=== PATIENT | male | born 1955 | race Two or more races ===

== ENCOUNTER 2020-10-01 11:00 | Emergency (ER) | payer OTHER, SELFPAY ==
[2020-10-01 12:12] VITALS: BP 110/66; PULSE 97; RESP 18; TEMP 36.8; O2SAT 97; BMI 24.2
--- NOTE | 2020-10-01 12:12 | ED_ITS ---
HPI - General Adult General Stated complaint: swollen neck Time Seen by Provider: 10/01/20 12:12 Related Data Allergies Allergy/AdvReac Type Severity Reaction Status Date / Time No Known Allergies Allergy Unverified 06/14/20 16:43 Course Course Course Narrative: 1210-This is a rapid medical exam. 65 yo male with past medical history with HTN, hypothyroidism, brain tumor s/p resection here with right neck swelling with mass x 2 months. Pain radiates to ear. Seen at [facility] and referred to ED for further evaluation. Hemodynamically stable. Will check labs in anticipation for additional imaging. Deferred HPI, PE and ROS to primary provider.
[2020-10-01 12:38] LABS: MANUAL DIFF FLAG NO
[2020-10-01 12:41] LABS: Basophils Percent Auto 0.4 % (0-2); Eosinophils Absolute Auto 0.1 X10*3/uL (0.0-0.4); Eosinophils Percent Auto 0.6 % (0-4); Hematocrit 39.8 % (42-52); Imm Gran Abs Auto 0.03 X10*3/uL (0.00-0.03); Imm Gran Pct Auto 0.3 % (0.0-0.4); Lymphocytes Absolute Auto 1.8 X10*3/uL (1.2-4.9); Lymphocytes Percent Auto 18.6 % (20-40); Mean Corpuscular HGB Conc 32.7 g/dl (31.0-36.0); Mean Corpuscular Volume 94.8 fL (80-98); Mean Platelet Volume 11.1 fL (9.4-12.4); Monocytes Absolute Auto 0.9 X10*3/uL (0.1-1.2); Monocytes Percent Auto 9.2 % (2-11); Neutrophils Absolute Auto 6.8 X10*3/uL (2.0-8.3); Neutrophils Percent Auto 70.9 % (45-73); Platelet Count 238 X10*3/uL (160-400); Red Cell Distribution Width 12.9 % (11.0-16.0); White Blood Count 9.6 X10*3/uL (4.8-10.8)
[2020-10-01 13:12] LABS: Anion Gap 14 (12-20); Blood Urea Nitrogen 16 mg/dL (9-16); Calcium 8.5 mg/dL (8.4-10.2); Carbon Dioxide 29 mmol/L (22-29); Chloride 104 mmol/L (96-108); Creatinine Clr Calc Pharmacy 62.4; Estimated Glomerular Filt Rate > 60; Glucose Random 149 mg/dL (60-115); Potassium 4.6 mmol/l (3.3-5.1); Sodium 142 mmol/L (135-145)
--- NOTE | 2020-10-01 18:41 | CT_ITS ---
NECK CT WITH IV CONTRAST INDICATION: Swelling. COMPARISON: Head CT 09/16/2018. TECHNIQUE: Multidetector CT acquisition of the neck was obtained following the administration of 60cc of Omnipaque 350IV contrast. Multiplanar reformats were acquired and utilized for image interpretation. This CT examination was performed using dose optimization techniques as appropriate, variously including the following: *Automated exposure control *Adjustment of mA and/or kV according to patient size (this includes techniques or standardized protocols for targeted exams where dose is matched to indication/reason for exam; i.e. extremities or head) *Use of iterative reconstruction technique FINDINGS: There is a large centrally cystic septated lesion within the right neck just deep to the right sternocleidomastoid muscle measuring up to 5.4 cm AP by 4.3 cm TV by 5.8 cm CC. There is mild stranding within the fat surrounding this lesion which could reflect an infected brachial cleft cyst versus a metastatic centrally necrotic lymph node with extracapsular estefania spread. The lesion results in significant compression of the right internal jugular vein which is otherwise widely patent. There is some asymmetric enhancement at the right tongue base and within the right glossotonsillar sulcus which can be correlated with direct visual inspection and/or PET to exclude a primary mucosal space malignancy. No additional pathologically enlarged lymph nodes are identified within the neck. No additional urinary mucosal space malignancies are seen. The oropharynx is limitedly assessed secondary to close mucosal apposition. Pleural blebs bilaterally. Lungs are otherwise clear. Upper mediastinum is unremarkable. There is multilevel cervical spondylosis. There are no suspicious osseous findings. Right occipital craniectomy changes. Cystic resection cavity within the right posterior fossa. Intracranial compartment is otherwise unremarkable. CT/CT soft tissue neck w con IMPRESSION: - There is a large centrally cystic septated lesion within the right neck just deep to the right sternocleidomastoid muscle measuring up to 5.4 cm AP by 4.3 cm TV by 5.8 cm CC. There is mild stranding within the fat surrounding this lesion which could reflect an infected brachial cleft cyst versus a metastatic centrally necrotic lymph node with extracapsular estefania spread. The lesion results in significant compression of the right internal jugular vein which is otherwise widely patent. - There is some asymmetric enhancement at the right tongue base and within the right glossotonsillar sulcus which can be correlated with direct visual inspection and/or PET to exclude a primary mucosal space malignancy.
[2020-10-01 19:06] VITALS: BP 122/87; PULSE 78; RESP 16; TEMP 37.2; O2SAT 97
[2020-10-01] MEDS: iohexoL 350 MG/ML 100 ML INFUS..BTL IV (19:20)
[2020-10-01] MEDS: Piperacillin Sodium/Tazobactam 3.375 GM in 0.9 % Sodium Chloride 50 ML IV (19:52)
--- NOTE | 2020-10-01 20:14 | ED_ITS ---
HPI - General Adult General Chief complaint: General Medical Stated complaint: swollen neck Time Seen by Provider: 10/01/20 12:12 Source: patient Mode of arrival: ambulatory Limitations: language barrier History of Present Illness HPI narrative: 65-year-old male with past medical history of hypertension, hyperlipidemia, and history of brain cancer in the cerebellum with resection in 1992 presents with a right neck swelling and pain for approximately a month and a half. He presented to his primary care physician's office for blood work, and they was referred to the emergency department. He does have pain on movement, minimal pressure, and when swallowing. He is able to swallow and manage secretions, does not report change in voice, fevers or chills, denies chest pain or pressure, palpitations, shortness of breath, abdominal pain, abdominal distention, dysuria, hematuria, and edema. Onset (ago): month(s) (09/29) Location: neck (Right) Severity: severe Severity scale (1-10): 10 Quality: aching and constant Pain Consistency: constant Relieving factors: none Exacerbating factors: eating and movement Associated symptoms: denies other symptoms Related Data Previous Rx's Medication Instructions Recorded doxycycline hyclate 100 mg PO BID 10 Days #20 cap 10/01/20 oxycodone 5 mg PO Q6H PRN #20 tab 10/01/20 Allergies Allergy/AdvReac Type Severity Reaction Status Date / Time No Known Allergies Allergy Verified 10/01/20 18:43 Review of Systems Review of Systems: Constitutional: No Fever, No Chills ENT/Mouth: Positive neck pain, right-sided neck swelling, pain when chewing and swallowing, No Ear Pain, No Hoarseness, No sore throat Eyes: No Eye Pain, No Swelling, No Redness, No Foreign Body Cardiovascular: No Chest Pain, No SOB Respiratory: No Cough, No Dyspnea Gastrointestinal: No Nausea, No Vomiting, No Diarrhea, No abdominal Pain Genitourinary: No Dysuria, No Hematuria Musculoskeletal: No joint pain, No Myalgias, No Joint Swelling Skin: No Skin lacerations, No rash Neuro: No Weakness, No Numbness, No Paresthesias, No Loss of Consciousness, No Dizziness, No Headache Psych: No Anxiety/Panic, No Depression Heme/Lymph: no easy bruising, no Lymphadenopathy Endocrine: No Polyuria, No Polydipsia Yes all other systems are reviewed and are negative PMFSH Past Medical History Attestation statement: The following information was validated with the patient. Medical History HTN (hypertension) Hypothyroid Surgical History Hx of cholecystectomy Social History Social History Advance Directives: No Advance Directives Information Provided: No Physical Exam Vital Signs: Vital Signs: Last Vital Signs Temp 98.0 F 10/01/20 20:34 Pulse 75 10/01/20 20:34 Resp 18 10/01/20 20:34 BP 149/86 H 10/01/20 20:34 Pulse Ox 99 10/01/20 20:34 Body Mass Index 24.2 Appearance: Alert. Oriented X3. Moderate distress. Eyes: Pupils equal, round and reactive to light. ENT: Right-sided neck swelling, severe tenderness on minimal palpation, pain on left and right rotation flexion and extension, uvula not visualized Mallampati 4, Neck: Normal inspection. Neck supple. CVS: Normal heart rate and rhythm. Pulses normal. Respiratory: No respiratory distress. Breath sounds normal. Abdomen: Soft and nontender. Skin: Skin warm and dry. Normal skin color. Normal skin turgor. Extremities: No lower extremity edema. Neuro: No motor deficit. No sensory deficit. Course Course Course Narrative: 65-year-old male with past medical history of hypertension, hyperlipidemia, history of brain cancer with resection to the right cerebellum presents with right-sided neck pain and swelling. Patient is able to swallow, oropharyngeal cavity not visualized because of a thick tongue even with pressure from a tongue depressor. He is able to swallow, does not report any change in voice. Plan of care is for CT scan of neck with contrast. Will start IV Zosyn for suspicion of parotiditis, versus abscess, versus Ca. [address] Nelson, ENT at [facility], plan of care is to discharge the patient home as he is able to eat, drink, and manage secretions. Patient will follow-up in his office tomorrow, detailed discussion with patient regarding plan of care. cardiovascular tech utilized for all correspondence. Google translate for discharge instructions Reevaluation(s) Reevaluation #1: Discussion with Dr. Bragg regarding CT scan findings, unfortunately we do not have had her neck surgery here Dr. Bragg suggest transferring out to [facility]. Call out to [facility] at this time. Time: 20:19 Reevaluation #2: DENNIS Nelson [facility] Time: 20:53 Consultations Consultation #1: Yemi Time: 20:13 Medical Decision Making MDM Narrative Medical decision making narrative: Parotiditis, mass, malignancy, abscess Medical Records Medical records reviewed: Yes I reviewed the patient's medical records. Lab Data Lab results reviewed: Yes I reviewed the patient's lab results. Result diagrams: 10/01/20 12:30 10/01/20 12:30 Labs: Lab Results 10/01/20 10/01/20 10/01/20 Range/Units 12:30 12:30 12:30 WBC 9.6 (4.8-10.8) X10*3/uL RBC 4.20 L (4.60-5.80) X10*6/uL Hgb 13.0 L (14.0-18.0) g/dl Hct 39.8 L (42-52) % MCV 94.8 (80-98) fL MCH 31.0 (27.0-33.0) pg MCHC 32.7 (31.0-36.0) g/dl RDW 12.9 (11.0-16.0) % Plt Count 238 (160-400) X10*3/uL MPV 11.1 (9.4-12.4) fL Immature Gran % (Auto) 0.3 (0.0-0.4) % Neut % (Auto) 70.9 (45-73) % Lymph % (Auto) 18.6 L (20-40) % Elmore % (Auto) 9.2 (2-11) % Eos % (Auto) 0.6 (0-4) % Baso % (Auto) 0.4 (0-2) % Lymph # (Auto) 1.8 (1.2-4.9) X10*3/uL Elmore # (Auto) 0.9 (0.1-1.2) X10*3/uL Eos # (Auto) 0.1 (0.0-0.4) X10*3/uL Baso # (Auto) 0.0 (0.0-0.2) X10*3/uL Abs Immat Gran (auto) 0.03 (0.00-0.03) X10*3/uL Absolute Neuts (auto) 6.8 (2.0-8.3) X10*3/uL Absolute Nucleated RBC 0.000 (0.0-0.012) X10*3/uL Nucleated RBC % (auto) 0.0 (0.0-0.2) /100WBC Hold Blue Top SEE NOTE Sodium 142 (135-145) mmol/L Potassium 4.6 (3.3-5.1) mmol/l Chloride 104 (96-108) mmol/L Carbon Dioxide 29 (22-29) mmol/L Anion Gap 14 (12-20) BUN 16 (9-16) mg/dL Creatinine 1.05 (0.5-1.4) mg/dL Estim Creat Clear Calc 62.4 Estimated GFR > 60 Random Glucose 149 H (60-115) mg/dL Calcium 8.5 (8.4-10.2) mg/dL Imaging Data CT scan with contrast neck: Attestation: I personally reviewed and interpreted this imaging study as follows: Radiologist's impression: NECK CT WITH IV CONTRAST INDICATION: Swelling. COMPARISON: Head CT 09/16/2018. TECHNIQUE: Multidetector CT acquisition of the neck was obtained following the administration of 60cc of Omnipaque 350IV contrast. Multiplanar reformats were acquired and utilized for image interpretation. This CT examination was performed using dose optimization techniques as appropriate, variously including the following: *Automated exposure control *Adjustment of mA and/or kV according to patient size (this includes techniques or standardized protocols for targeted exams where dose is matched to indication/reason for exam; i.e. extremities or head) *Use of iterative reconstruction technique FINDINGS: There is a large centrally cystic septated lesion within the right neck just deep to the right sternocleidomastoid muscle measuring up to 5.4 cm AP by 4.3 cm TV by 5.8 cm CC. There is mild stranding within the fat surrounding this lesion which could reflect an infected brachial cleft cyst versus a metastatic centrally necrotic lymph node with extracapsular estefania spread. The lesion results in significant compression of the right internal jugular vein which is otherwise widely patent. There is some asymmetric enhancement at the right tongue base and within the right glossotonsillar sulcus which can be correlated with direct visual inspection and/or PET to exclude a primary mucosal space malignancy. No additional pathologically enlarged lymph nodes are identified within the neck. No additional urinary mucosal space malignancies are seen. The oropharynx is limitedly assessed secondary to close mucosal apposition. Pleural blebs bilaterally. Lungs are otherwise clear. Upper mediastinum is unremarkable. There is multilevel cervical spondylosis. There are no suspicious osseous findings. Right occipital craniectomy changes. Cystic resection cavity within the right posterior fossa. Intracranial compartment is otherwise unremarkable. CT/CT soft tissue neck w con IMPRESSION: - There is a large centrally cystic septated lesion within the right neck just deep to the right sternocleidomastoid muscle measuring up to 5.4 cm AP by 4.3 cm TV by 5.8 cm CC. There is mild stranding within the fat surrounding this lesion which could reflect an infected brachial cleft cyst versus a metastatic centrally necrotic lymph node with extracapsular estefania spread. The lesion results in significant compression of the right internal jugular vein which is otherwise widely patent. - There is some asymmetric enhancement at the right tongue base and within the right glossotonsillar sulcus which can be correlated with direct visual inspection and/or PET to exclude a primary mucosal space malignancy Discharge Plan Discharge Clinical Impression: Mass of right side of neck Patient Disposition: Home, Self-Care Instructions: Soft Tissue Mass (ED) Additional Instructions: Se le evalu? la hinchaz?n y el dolor del jack del lado derecho. Se sospecha que esto es canceroso. [place], llame y luis cornelius kavitha. Le rece? oxicodona para el dolor. Lang medicamento es un narc?my y tiene un alto riesgo de adicci?n y abuso. No conduzca ni utilice maquinaria mientras est? tomando lang medicamento. Lang medicamento aumentar? el riesgo de ca?peña, somnolencia y estre?imiento. Clarissa mucho l?quido. Si en alg?n momento tiene alguna dificultad para tragar, por favor regrese al departamento de emergencias inmediatamente. Sintia por elegir lang departamento de emergencias para la evaluaci?n. Por favor, luis un seguimiento con el m?dico de atenci?n primaria seg?n sea necesario. Regrese al servicio de urgencias para cualquier s?ntoma nuevo, preocupante o que empeore. You were evaluated for right-sided neck swelling and pain. This is suspected to be cancerous. Please follow-up with Dr. Nelson, call and make an appointment. I prescribed oxycodone for pain. This medication is a narcotic and has high risk for addiction and abuse. Do not drive or operate machinery while taking this medication. This medication will increase risk for falls, drowsiness, and constipation. Drink plenty of fluids. If at any time you have any difficulty swallowing please return to the emergency department immediately. Thank you for choosing this emergency department for evaluation. Please foll ow-up with primary care physician as needed. Return to the emergency department for any new, concerning, or worsening symptoms. Prescriptions: New oxycodone 5 mg tablet 5 mg PO Q6H PRN (Reason: pain) Qty: 20 RF: 0 doxycycline hyclate 100 mg capsule 100 mg PO BID 10 Days Qty: 20 RF: 0 Referrals: Daniel Nelson MD [Physician] - 2 days (Right-sided neck mass suspected to be necrotic or cancer) Interventions: ED Discharge Assessment Last Done: 10/01/20 21:27 Discharge Date/Time: 10/01/20 21:28
[2020-10-01 20:34] VITALS: BP 149/86; PULSE 75; RESP 18; TEMP 36.7; O2SAT 99
[2020-10-01] MEDS: oxyCODONE HCl Immed Release 5 MG TABLET PO ×2 (21:16)
== END 2020-10-01 21:28 | disposition home or self-care (01) ==
PROVIDERS: Nurse Practitioner Family; Emergency Provider Emergency Medicine; PCP Family Medicine
DX: R22.1 Localized swelling, mass and lump, neck (principal); I10 Essential (primary) hypertension; E03.9 Hypothyroidism, unspecified; Z85.841 Personal history of malignant neoplasm of brain
CPT/HCPCS: 36415; 70491; 80048; 85025; 96365; 99284; J2543; Q9967

== ENCOUNTER 2021-05-22 16:11 | Outpatient (REF) | payer OTHER, SELFPAY | END 2021-05-22 16:12 | disposition home or self-care (01) | LOC: HO.SCI 16:11 | PROVIDERS: Visit Provider Family Medicine | DX: Z13.89 Encounter for screening for other disorder (principal) ==

== ENCOUNTER 2022-06-04 12:23 | Outpatient (REF) | payer OTHER, SELFPAY ==
--- NOTE | ~2022-06-04 | US_ITS ---
EXAMINATION: US ABDOMEN COMPLETE CLINICAL INFORMATION: Fatty liver. COMPARISON: Ultrasound abdomen complete 09/23/2018. Ultrasound abdomen limited 07/17/2014. TECHNIQUE: Real-time imaging of the abdominal viscera. FINDINGS: PANCREAS: Normal. ABDOMINAL AORTA: The proximal, mid, and distal segments are normal in caliber. INFERIOR VENA CAVA: Visualized portions are normal. LIVER: The liver is normal in size. The liver contour is normal. The liver is diffusely echogenic. No focal hepatic lesion. There is no intrahepatic biliary duct dilatation seen. GALLBLADDER: Surgically absent. COMMON BILE DUCT: Normal in caliber measuring 0.3 cm in diameter. RIGHT KIDNEY: There is an anechoic cyst with calcification in the midpole measuring 0.8 x 0.7 x 0.7 cm. No additional lesions seen No hydronephrosis or renal calculi. The kidney measures 10.3 cm in maximum dimension. LEFT KIDNEY: Normal. No hydronephrosis. No renal calculi or focal parenchymal lesions. The kidney measures 10.9 cm in maximum dimension. SPLEEN: Normal. The spleen measures 8.9 cm in maximum dimension. FREE FLUID: None. US/US abdomen complete IMPRESSION: Bosniak type II cyst right kidney. Mild hepatic steatosis. No focal lesion seen. The rest of the abdominal ultrasound is unremarkable.
== END 2022-06-04 12:24 | disposition home or self-care (01) ==
LOC: HO.US 12:23
PROVIDERS: Visit Provider Family Medicine
DX: K76.0 Fatty (change of) liver, not elsewhere classified (principal)
CPT/HCPCS: 76700

== ENCOUNTER 2022-06-27 13:26 | Outpatient (REF) | payer OTHER, SELFPAY ==
--- NOTE | ~2022-06-27 | CT_ITS ---
EXAMINATION: CT CHEST SCREENING CLINICAL INFORMATION: Former smoker. COMPARISON: None TECHNIQUE: Multidetector volumetric CT imaging of the chest is performed without contrast using low dose technique. Additional 2D coronal and sagittal reformatted images and axial 3D maximum intensity projection (MIP) images are generated on the CT workstation. This CT examination was performed using dose optimization techniques as appropriate, variously including the following: *Automated exposure control. *Adjustment of mA and/or kV according to patient size (this includes techniques or standardized protocols for targeted exams where dose is matched to indication/reason for exam; i.e. extremities or head). *Use of iterative reconstruction technique. DLP: 46 mGy-cm FINDINGS: LUNGS: The lungs are hyperinflated with small cystic bullous changes in both lung apices. A 3 mm ground-glass nodule is seen in the right upper lobe posteriorly image 13/4, 2 mm nodule right upper lobe anterior segment image 30/4, 2 mm calcified nodule left upper lobe image 239/6. There are scattered 1-2 mm calcified nodules in both upper lobes, lower lobes. The largest calcified nodule is subpleural left lower lobe lateral segment image 382/6. MEDIASTINUM: The thyroid lobes are symmetrical and normal. Central trachea and the bronchi are widely patent. There is mild facet calcification of aortic arch. No aneurysmal dilatation of the aorta. Heart size is normal. Trace coronary artery calcification seen. No pericardial effusion seen. A small hiatal hernia. No abnormal-sized mediastinal or hilar lymph nodes seen. CORONARY ARTERY CALCIFICATION: Trace coronary artery calcifications are seen. PLEURA: There is no pleural effusion. No pleural mass or thickening. AXILLA: No lymphadenopathy. UPPER ABDOMEN: Visualized liver, spleen, pancreas and bilateral adrenal glands are unremarkable. Gallbladder has been surgically removed. OSSEOUS STRUCTURES: No lytic or sclerotic process seen. CT/CT lung screening IMPRESSION: 1. Multiple calcified nodules consistent with granulomas. 2. Noncalcified ground-glass 3 m nodule right upper lobe. 3. No abnormal consolidation, mass or abnormal mediastinal lymphadenopathy. ASSESSMENT: Lung-RADS category 2: Benign. RECOMMENDATION: Low-dose annual CT chest.
== END 2022-06-27 13:27 | disposition home or self-care (01) ==
LOC: HO.CT 13:26
PROVIDERS: PCP Family Medicine; Visit Provider Physician Assistant Medical
DX: Z12.2 Encounter for screening for malignant neoplasm of respiratory organs (principal); Z87.891 Personal history of nicotine dependence
CPT/HCPCS: 71271

== ENCOUNTER 2022-12-30 15:30 | Outpatient (REF) | payer OTHER, SELFPAY ==
--- NOTE | ~2022-12-30 | US_ITS ---
EXAMINATION: US RETROPERITONEAL LIMITED (RENAL ONLY) CLINICAL INFORMATION: Kidney cyst. COMPARISON: Ultrasound abdomen complete 06/04/2022 and 09/23/2018. TECHNIQUE: Real-time imaging of the kidneys. FINDINGS: RIGHT KIDNEY: 9.7 x 5.1 x 4.1 cm (SAG x AP x TRV). The kidney is normal in size, contour, and echogenicity. Renal cortical thickness is normal. No renal calculi or hydronephrosis. There is an anechoic cyst echogenic posterior wall midpole measuring 0.8 x 0.6 x 0.6 cm with calcification midpole. Previously it measured 0.8 x 0.7 x 0.7 cm. LEFT KIDNEY: 10.4 x 6.0 x 4.7 cm (SAG x AP x TRV). The kidney is normal in size, contour, and echogenicity. Renal cortical thickness is normal. No renal calculi or hydronephrosis. There are anechoic cysts measuring 1.0 x 1.0 x 1.0 lower pole and a partially exophytic cyst in the upper pole laterally measuring 1.1 x 0.8 x 0.8 cm. The cysts are new compared to last ultrasound exam. US/US renal BI IMPRESSION: Complex cyst midpole right kidney, stable. Simple cyst left kidney. No echogenic stones seen.
== END 2022-12-30 15:31 | disposition home or self-care (01) ==
LOC: HO.US 15:30
PROVIDERS: PCP Family Medicine; Visit Provider Family Medicine
DX: N28.1 Cyst of kidney, acquired (principal); R63.0 Anorexia
CPT/HCPCS: 76775

== ENCOUNTER 2022-12-30 17:25 | Emergency (ER) | payer OTHER, SELFPAY ==
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
[2022-12-30 17:32] VITALS: BP 125/63; BP 128/73; PULSE 100; PULSE 90; RESP 18; TEMP 36.6; O2SAT 98; BMI 24.9
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
[2022-12-30] MEDS: oxyCODONE HCl Immed Release 5 MG TABLET PO (19:34)
--- NOTE | 2022-12-30 20:04 | PC.NURSE ---
pt medicated per MAR- pt id frustrated with c-collar stated to author it is uncomfortable. stressed importance of leaving c-collar in place until cleared by provider. repositioned pt- pt taken to CT scan- [facility]
[2022-12-30 21:12] VITALS: BP 125/70; PULSE 78; RESP 16; TEMP 36.7; O2SAT 99
--- NOTE | 2022-12-30 22:02 | PC.NURSE ---
pt awaiting CT Scan results- called [facility] RE: CT rsults as scan is not read at this time- pt vss, c-collar in place, call santana within reach [facility]
--- NOTE | 2022-12-30 23:40 | PC.NURSE ---
RN spoke with PA regarding pt's concerns and results of radiology report. 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 Per PA new med orders and discharge to be entered.
[2022-12-31 00:06] VITALS: BP 127/75; PULSE 91; RESP 16; TEMP 36.8; O2SAT 99
[2022-12-31] MEDS: Morphine Sulfate 4 MG/ML CARTRIDGE IM (00:08)
== END 2022-12-31 00:15 | disposition home or self-care (01) ==
PROVIDERS: Emergency Provider Internal Medicine; PCP Family Medicine
DX: S42.252A Displaced fracture of greater tuberosity of left humerus, initial encounter for closed fracture (principal); S60.511A Abrasion of right hand, initial encounter; S80.212A Abrasion, left knee, initial encounter; V28.09XA Other motorcycle driver injured in noncollision transport accident in nontraffic accident, initial encounter; Y93.89 Activity, other specified; Y92.414 Local residential or business street as the place of occurrence of the external cause; Y99.9 Unspecified external cause status
CPT/HCPCS: 70450; 72125; 73000; 73030; 73060; 73562; 96372; 99284; J2270

== ENCOUNTER 2023-05-22 18:16 | Outpatient (REF) | payer OTHER, SELFPAY ==
[2023-05-29 10:52] LABS: Alphahydroxymidazolam,GCMS Ur NEGATIVE; Alphahydroxytriazolam, GCMS Ur NEGATIVE; Alprazolam, GCMS Urine NEGATIVE; Flurazepam Metabolite,GCMS Ur NEGATIVE; Lorazepam GCMS Urine NEGATIVE; Nordiazepam, GCMS Urine NEGATIVE; Oxazepam, GCMS Urine NEGATIVE; Temazepam, GCMS Urine NEGATIVE
== END 2023-05-22 18:17 | disposition home or self-care (01) ==
LOC: HO.HHCLNP 18:16
PROVIDERS: Visit Provider Family Medicine
DX: M54.50 Low back pain, unspecified (principal); G89.29 Other chronic pain; F39 Unspecified mood [affective] disorder; F41.0 Panic disorder [episodic paroxysmal anxiety]; Z86.19 Personal history of other infectious and parasitic diseases
CPT/HCPCS: 80346

== ENCOUNTER → 2023-11-06 13:54 | Outpatient (REF) | payer OTHER, SELFPAY ==
--- NOTE | 2023-11-06 13:56 | CA_ITS ---
Transthoracic Echocardiogram Patient (Last, First, Middle): Karlo Goldstein, Gender: Male Date of : 1955 Age: 68 Procedure Date: 11/06/2023 Procedure Type: Transthoracic Echocardiogram Location: OP Height: 167.64 cm Weight: 63.5 kg BSA: 1.72 m2 Heart Rate: 96 bpm BP: 124 / 70 mmHg Electrician Sound: SB Referring MD: Patrizia Dior DO Symptoms: DIZZINESS. R.42 Study Quality: Adequate ECG Rhythm: Sinus Conclusions: - The left ventricular systolic function is hyperdynamic. The calculated ejection fraction is 69% by biplane method. - No obvious valvular pathology seen on this study. Findings Left Ventricle Normal left ventricular cavity size. The left ventricular systolic function is hyperdynamic. The calculated ejection fraction is 69% by biplane method. There is no evidence of regional wall motion abnormalities. Diastolic function is normal for age. There is mild septal asymmetric hypertrophy. LV peak GLS -17.2%, under-estimation. Right Ventricle Normal right ventricular cavity size and systolic function. Atria Both atria are normal in size. Aortic Valve There is a normal trileaflet aortic valve. There is no aortic valve stenosis. There is no aortic valve regurgitation. Mitral Valve The mitral valve appears normal. There is no mitral valve regurgitation. There is no mitral valve stenosis. Pulmonic Valve The pulmonic valve is likely normal. Tricuspid Valve Normal tricuspid valve structure. There is no tricuspid valve regurgitation. Tricuspid regurgitation envelope is inadequate for calculation of right ventricular systolic pressure. Great Vessels The asc aorta is normal in size. Venous The inferior vena cava is normal in size and collapses greater than 50% with inspiration. Pericardium/Pleural There is no evidence of pericardial effusion. Prior Study Comparison No prior study available for comparison. Recommendations, Care & Conclusions No obvious valvular pathology seen on this study. Measurements 2D Linear Measurements IVSd: 0.89 0.6-0.9/0.6-1.0 cm LVIDd: 3.66 3.9-5.3/4.2-5.9 cm LVIDd Index: 2.13 2.4-3.2/2.2-3.1 cm/m2 LVIDs: 2.32 2.0-3.6 cm LVPWd: 0.80 0.7-1.1 cm LA Diam: 2.80 2.7-3.8/3.0-4.0 cm LAIDs Index: 1.63 1.5-2.3 cm/m2 LV Mass: 108.09 67-162/88-224 g LV Mass Index: 62.84 43-95/49-115 g/m2 LVOT Diam: 2.00 3.0+(-)1.3 cm 2D Systolic Function EF 4C: 71.50 >55% EF 2C: 68.10 >55% EF BiP: 69.00 >55% Mitral Valve MV Pk E: 0.66 MV PK A: 0.78 MV Decel Time: 169.00 E/A: 0.80 E'Lateral: 7.62 E'Medial: 6.96 E/E' Med: 9.40 E/E' Lat: 8.60 PHT: 49.00 MVA PHT: 4.49 Decel [place]: 3.88 Aortic Valve AoV Pk Manuel: 1.42 AoV Pk Grad: 8.00 MILDRED: 2.44 LVOT LVOT Pk Manuel: 1.21 LVOT Mn Manuel: 0.75 LVOT VTI: 0.21 LVOT Pk Grad: 6.00 LVOT Mn Grad: 3.00 LVOT Diam: 2.00 LVOT Area: 3.14 Diastolic Function MV Pk E: 0.66 MV Pk A: 0.78 E/A: 0.80 E'Medial: 6.96 E/E' Med: 9.40 E' Laterial: 7.62 E/E' Lat: 8.60 Right Ventricle TAPSE (mm): 21.30 TVS' Manuel: 11.40 Tricuspid Valve RA Press: 3.00 Great Vessels Aorta Sinus of Valsalva: 3.50 2.0-3.5 cm Ao Asc: 3.20 2.1-3.4 cm Pulmonary Valve PV Pk Manuel: 0.88 Peak PV Grad: 3.00 Updated in Other Vendor System with Status of Final Miky Read MD electronically signed on 11/07/2023 11:04:28 AM with status of Final
== END ==
LOC: HO.CARD 13:54
PROVIDERS: PCP Family Medicine; Visit Provider Family Medicine
DX: R42 Dizziness and giddiness (principal)
CPT/HCPCS: 93306; 93356

== ENCOUNTER → 2023-11-06 13:56 | Outpatient (BNV) | payer OTHER, SELFPAY | PROVIDERS: PCP Family Medicine; Visit Provider Internal Medicine | DX: I42.2 Other hypertrophic cardiomyopathy (principal) | CPT/HCPCS: 93306 ==

== ENCOUNTER → 2023-11-12 07:56 | Outpatient (REF) | payer OTHER, SELFPAY | LOC: HO.NUCMED 07:56 | PROVIDERS: PCP Family Medicine; Visit Provider Family Medicine | DX: Z13.89 Encounter for screening for other disorder (principal) ==

== ENCOUNTER 2023-12-02 16:08 | Outpatient (REF) | payer OTHER, SELFPAY ==
--- NOTE | ~2023-12-02 | CT_ITS ---
EXAMINATION: CT HEAD WITHOUT CONTRAST CLINICAL INFORMATION: Dizziness COMPARISON: CT head on 12/30/2022 TECHNIQUE: Contiguous axial imaging was performed from the skull base to vertex without intravenous administration of contrast. This CT examination was performed using dose optimization techniques as appropriate, variously including the following: *Automated exposure control *Adjustment of mA and/or kV according to patient size (this includes techniques or standardized protocols for targeted exams where dose is matched to indication/reason for exam; i.e. extremities or head) *Use of iterative reconstruction technique DLP: 770 mGy-cm FINDINGS: No acute intracranial hemorrhage or infarct. The jaime-white matter differentiation is preserved. Encephalomalacic and gliotic changes in the right cerebellar hemisphere. No midline shift or hydrocephalus. No acute extra-axial fluid collections. The osseous structures are unremarkable. No orbital pathology. The paranasal sinuses and mastoid air cells are clear. Atherosclerotic calcifications of the bilateral carotid siphons. CT/CT head/brain wo IV con IMPRESSION: No acute intracranial pathology.
== END 2023-12-02 16:09 | disposition home or self-care (01) ==
LOC: HO.CT 16:08
PROVIDERS: PCP Family Medicine; Visit Provider Family Medicine
DX: R42 Dizziness and giddiness (principal)
CPT/HCPCS: 70450

== ENCOUNTER 2024-01-19 08:49 | Outpatient (REF) | payer OTHER, SELFPAY ==
[2024-01-19 10:39] LABS: Hemoglobin 13.7 g/dl (14.0-18.0); Mean Corpuscular HGB Conc 32.6 g/dl (31.0-36.0); Mean Corpuscular Hemoglobin 30.5 pg (27.0-33.0); Mean Corpuscular Volume 93.5 fL (80.0-98.0); Mean Platelet Volume 11.8 fL (9.4-12.4); Platelet Count 201 X10*3/uL (160-400); Red Blood Count 4.49 X10*6/uL (4.60-5.80); Red Cell Distribution Width 12.9 % (11.0-16.0); White Blood Count 6.8 X10*3/uL (4.8-10.8)
[2024-01-19 11:49] LABS: Alanine Aminotransferase 17 U/L (0-40); Albumin Level 4.2 g/dL (3.5-5.0); Alkaline Phosphatase 68 U/L (39-117); Anion Gap 14 (12-20); Aspartate Amino Transferase 14 U/L (5-37); Bilirubin Total 0.3 mg/dL (0.0-1.0); Blood Urea Nitrogen 17 mg/dL (9-16); Calcium 9.2 mg/dL (8.4-10.2); Carbon Dioxide 25 mmol/L (22-29); Chloride 106 mmol/L (96-108); Estimated Glomerular Filt Rate 57; Glucose Random 156 mg/dL (60-115); Iron 63 mcg/dL (45-160); Percent Iron Saturation 23 % (15-50); Potassium 3.5 mmol/L (3.3-5.1); Sodium 141 mmol/L (135-145); Total Iron Binding Capacity 278 mcg/dL (228-428); Total Protein 7.6 g/dL (6.5-8.0); Unsaturated Iron Binding 215 ug/dL
[2024-01-19 12:11] LABS: Ferritin 84 ng/mL (20-250)
[2024-01-20 04:37] LABS: HBS Num1 15.02 mIU/mL (0-7.99); HBc Num1 5.52 S/CO (0.00-0.79); HBsAGNum1 0.31 S/CO (0.00-0.99); HIV AB/AG Nonreactive (Nonreactive); HIV Num 1 0.05 S/CO (0.00-0.99); Hepatitis B Surface Antigen Negative (Negative); ~HepC Num1 9.86 S/CO (0.00-0.79); ~Hepatitis B Surface Antibody REACTIVE (Nonreactive); ~Hepatitis C Antibody Reactive (Nonreactive)
[2024-01-20 04:39] LABS: Hepatitis A Antibody IgG REACTIVE (Nonreactive); ~Hepatitis A Antibody IgG 11.08 S/CO (0.00-0.99)
[2024-01-20 05:36] LABS: HBc Num2 5.62 S/CO; HBc Num3 5.56 S/CO; Hepatitis B Core Antibody Reactive (Nonreactive)
[2024-01-20 19:38] LABS: HCV Log PCR <1.18 NOT DETECTED Log IU/mL (NOT DETECTED); HepC Viral Load <15 NOT DETECTED IU/mL (NOT DETECTED)
== END 2024-01-19 08:50 | disposition home or self-care (01) ==
LOC: HO.LAB 08:49
PROVIDERS: PCP Family Medicine; Visit Provider Internal Medicine
DX: R63.4 Abnormal weight loss (principal)
CPT/HCPCS: 36415; 80053; 82728; 83540; 85027; 86704; 86706; 86708; 86803; 87340; 87389; 87522; 99202

== ENCOUNTER 2024-01-19 08:49 | Outpatient (AMB) | payer OTHER, SELFPAY ==
--- NOTE | 2024-01-19 08:54 | MHC.OFFVIS ---
Vital Signs 01/19/24 08:56 Height 5 ft 6 in Weight 158 lb 11.725 oz BMI 25.6 BP 140/62 H Blood Pressure Location Lt brachial Position Sitting Pulse 93 Intake Visit Reasons: Dysphagia Intake Note: Karlo presents in the office as a new patient for dysphagia. CC: He feels like he has to clear his throat as if there is something in his throat. He states that the past month he has been okay since he has been eating right. If he eats saucy foods or sweet juice he will get discomfort in his throat. When he is eating he states that he has some difficulty swallowing. Opticianry Teacher Required: Yes Opticianry Teacher Name: [id number] [place] Allergies No Known Allergies Allergy (Verified 01/19/24 08:56) HPI Comments Details: This is a 68 y.o M with PMH of HCV, hx of skin ca s/p Mohs 2020, s/p CCY who is here for dysphagia. Seen with online exercise physiology professor. Pt reports difficulty swallowing certain textures such as breads, hard meats or vegetables and has to dalila it down with fluids. x1 month. Does not think it is progressing. No regurgitation, coughing or choking reported. Appetite is good, but reports bloating and weight loss of around 5lbs in the past 3 months. Last colo x 10 years ago. [facility] Medical History (Updated 01/19/24 @ 09:29 by Svetlana Solis MD) Insomnia Panic disorder Depression with anxiety Hepatitis C virus infection Erectile dysfunction Fatty (change of) liver, not elsewhere classified High cholesterol Diabetes History of brain cancer Hepatitis C Personal history of nicotine dependence Hypothyroid HTN (hypertension) Surgical History (System 09/01/23 @ 11:13 by Rosibel Hernandez) Status post craniectomy (~1992) History of umbilical hernia repair (~07/2014) History of laparoscopic cholecystectomy (~07/2014) Review of Systems Const All systems reviewed & are unremarkable except as noted in HPI and below Physical Exam Vital Signs: Last Vital Signs Pulse 93 01/19/24 08:56 BP 140/62 H 01/19/24 08:56 BMI result Body Mass Index 25.6 Assessment & Plan Assessment & Plan (1) Unintentional weight loss: Code(s): R63.4 - Abnormal weight loss Category: Medical (2) Dysphagia: Code(s): R13.10 - Dysphagia, unspecified Category: Medical (3) Hepatitis C virus infection: Code(s): B19.20 - Unspecified viral hepatitis C without hepatic coma Category: Medical Plan 1. Dysphagia, unintentional weight loss, bloating: Ddx include esophageal stricture, web, dysmotility. Pt also reporting other sx such as bloating and unintentional wieght loss and therefore will need a bidirectional endoscopy for complete evaluation. Plan: - Barium swallow - EGD/colo - PEG sent to pharmacy and instructions reviewed. - CBC, CMP, HIV, hepatitis serologies and iron studies for w/up of unintentional weight loss 2. Hx of HCV: Pt reports getting tx for this years ago with injection . Will get updated hep serologies and LFTs Follow up after procedures Orders: Orders Complete Blood Count no Diff Today R63.4 - Abnormal weight loss Comprehensive Met. Panel Today R63.4 - Abnormal weight loss IRON PROFILE Today R63.4 - Abnormal weight loss Hepatitis A IgG Today R63.4 - Abnormal weight loss Hepatitis B Surface Antibody Today R63.4 - Abnormal weight loss Hepatitis C Viral Load Today R63.4 - Abnormal weight loss FL barium swallow Today R13.10 - Dysphagia, unspecified Ferritin Today R63.4 - Abnormal weight loss HIV Ab/Ag Today R63.4 - Abnormal weight loss Hepatitis B Core Antibody Today R63.4 - Abnormal weight loss Hepatitis B Surface Antigen Today R63.4 - Abnormal weight loss Hepatitis C Antibody Today R63.4 - Abnormal weight loss Medications: New peg 3350-electrolytes 236-22.74-6.74 -5.86 gram (Golytely) as per split prep instructions, until fecal effluent is clear 240 mL PO Q10M 4,000 mL 0RF colonoscopy
[2024-01-19 08:56] VITALS: BP 140/62; PULSE 93; BMI 25.6
== END 2024-01-19 09:41 | disposition home or self-care (01) ==
LOC: HO.HGI 08:49
PROVIDERS: PCP Family Medicine; Visit Provider Internal Medicine
DX: R63.4 Abnormal weight loss (principal); R13.10 Dysphagia, unspecified; B19.20 Unspecified viral hepatitis C without hepatic coma
CPT/HCPCS: 99204

== ENCOUNTER 2024-02-05 11:01 | Outpatient (REF) | payer OTHER, SELFPAY ==
--- NOTE | ~2024-02-05 | XR_ITS ---
EXAMINATION: XR BILATERAL FEET CLINICAL INFORMATION: Bilateral plantar foot pain, patient denies injury states pain for one year. COMPARISON: None available. TECHNIQUE: 6 views of each foot. FINDINGS: RIGHT FOOT: Bones are diffusely demineralized. Tiny plantar calcaneal spur. Vascular calcifications. Faint calcification along the posterior aspect of the ankle, possibly vascular. Mild degenerative changes in the first metatarsophalangeal joint. LEFT FOOT: Minimal dorsal and plantar calcaneal spurs. The bones are diffusely demineralized. Mild degenerative changes in the first metatarsophalangeal joint. Focal periosteal reaction along the proximal mid shaft of the left second metatarsal with possible associated subtle transverse linear lucency, possibly representing a stress fracture. Correlation with clinical exam and possible additional imaging with MRI recommended. XR/XR foot RT min 3V IMPRESSION: 1. Focal periosteal reaction along the proximal mid shaft of the left second metatarsal with possible associated subtle transverse linear lucency, possibly representing a stress fracture. Correlation with clinical exam and possible additional imaging with MRI recommended. 2. Mild degenerative changes bilateral first metatarsophalangeal joints. This study was presented today February 15, 2024 for interpretation. PSA staff will provide results to referring provider at this time.
--- NOTE | ~2024-02-05 | XR_ITS ---
EXAMINATION: XR BILATERAL FEET CLINICAL INFORMATION: Bilateral plantar foot pain, patient denies injury states pain for one year. COMPARISON: None available. TECHNIQUE: 6 views of each foot. FINDINGS: RIGHT FOOT: Bones are diffusely demineralized. Tiny plantar calcaneal spur. Vascular calcifications. Faint calcification along the posterior aspect of the ankle, possibly vascular. Mild degenerative changes in the first metatarsophalangeal joint. LEFT FOOT: Minimal dorsal and plantar calcaneal spurs. The bones are diffusely demineralized. Mild degenerative changes in the first metatarsophalangeal joint. Focal periosteal reaction along the proximal mid shaft of the left second metatarsal with possible associated subtle transverse linear lucency, possibly representing a stress fracture. Correlation with clinical exam and possible additional imaging with MRI recommended. XR/XR foot LT min 3V IMPRESSION: 1. Focal periosteal reaction along the proximal mid shaft of the left second metatarsal with possible associated subtle transverse linear lucency, possibly representing a stress fracture. Correlation with clinical exam and possible additional imaging with MRI recommended. 2. Mild degenerative changes bilateral first metatarsophalangeal joints. This study was presented today February 15, 2024 for interpretation. PSA staff will provide results to referring provider at this time.
== END 2024-02-05 11:02 | disposition home or self-care (01) ==
LOC: HO.HHCX 11:01
PROVIDERS: Visit Provider Family Medicine
DX: Z13.89 Encounter for screening for other disorder (principal)
CPT/HCPCS: 73630

== ENCOUNTER 2024-02-05 11:22 | Outpatient (REF) | payer OTHER, SELFPAY ==
[2024-02-05 13:25] LABS: Hematocrit 41.3 % (42.0-52.0); Hemoglobin 13.5 g/dl (14.0-18.0); Mean Corpuscular HGB Conc 32.7 g/dl (31.0-36.0); Mean Corpuscular Hemoglobin 30.8 pg (27.0-33.0); Mean Corpuscular Volume 94.3 fL (80.0-98.0); Mean Platelet Volume 11.6 fL (9.4-12.4); Platelet Count 251 X10*3/uL (160-400); Red Blood Count 4.38 X10*6/uL (4.60-5.80); Red Cell Distribution Width 13.1 % (11.0-16.0); White Blood Count 6.9 X10*3/uL (4.8-10.8)
[2024-02-05 13:38] LABS: Alanine Aminotransferase 13 U/L (0-40); Albumin Level 4.2 g/dL (3.5-5.0); Alkaline Phosphatase 68 U/L (39-117); Anion Gap 14 (12-20); Aspartate Amino Transferase 19 U/L (5-37); Bilirubin Direct 0.1 mg/dL (0.0-0.5); Bilirubin Total 0.3 mg/dL (0.0-1.0); Blood Urea Nitrogen 19 mg/dL (9-16); Calcium 9.4 mg/dL (8.4-10.2); Carbon Dioxide 23 mmol/L (22-29); Chloride 105 mmol/L (96-108); Cholesterol 240 mg/dL (<200); Estimated Glomerular Filt Rate 51; Glucose Random 177 mg/dL (60-115); HDL Cholesterol 37 mg/dL (>40); Iron 99 mcg/dL (45-160); Percent Iron Saturation 34 % (15-50); Potassium 3.4 mmol/L (3.3-5.1); Sodium 139 mmol/L (135-145); Total Iron Binding Capacity 287 mcg/dL (228-428); Total Protein 7.8 g/dL (6.5-8.0); Triglycerides 657 mg/dL (<150); Unsaturated Iron Binding 188 ug/dL
[2024-02-05 13:46] LABS: Estimated Average Glucose 154 mg/dL
[2024-02-05 13:52] LABS: Microalbum/Creatinine Ratio Ur 1.7 ug/mg cr (<30)
[2024-02-05 13:55] LABS: Ferritin 96 ng/mL (20-250); Free T4 (Free Thyroxine) 0.89 ng/dL (0.71-1.85); Thyroid Stimulating Hormone 2.17 uIU/mL (0.32-4.0); Vitamin D 25-OH Total 43.1 ng/mL (>30)
[2024-02-05 15:29] LABS: Folate 11.7 ng/mL (> or = 4.0); Vitamin B12 213 pg/mL (200-900)
[2024-02-08 13:17] LABS: Alpha Fetoprotein 4.4 ng/mL (<6.1)
== END 2024-02-05 11:23 | disposition home or self-care (01) ==
LOC: HO.HHCL 11:22
PROVIDERS: Visit Provider Family Medicine
DX: E11.9 Type 2 diabetes mellitus without complications (principal); K76.0 Fatty (change of) liver, not elsewhere classified; M79.671 Pain in right foot; M79.672 Pain in left foot
CPT/HCPCS: 36415; 73630; 80048; 80061; 80076; 82043; 82105; 82306; 82570; 82607; 82728; 82746; 83036; 83540; 84439; 84443; 85027

== ENCOUNTER 2024-03-17 15:03 | Outpatient (REF) | payer OTHER, SELFPAY ==
--- NOTE | ~2024-03-17 | MR_ITS ---
EXAMINATION: MRI FOOT WITHOUT CONTRAST, LEFT CLINICAL INFORMATION: Periosteal reaction midshaft left 2nd metatarsal. COMPARISON: Radiographs 02/05/2024. TECHNIQUE: MRI without contrast is performed on the left foot. FINDINGS: There is a focus of periosteal low signal corresponding with the calcification on the recent radiographs at the medial aspect of the mid metatarsal shaft which may be the result of a prior traumatic or stress-related injury. There is no marrow edema or surrounding soft tissue edema to suggest active stress reaction. Bone marrow signal is normal. No joint effusions. Visualized flexor and extensor tendons appear intact. Visualized plantar fascia is intact. No evidence of a Candelaria's neuroma or plantar plate tear. MR/MR foot LT wo con IMPRESSION: There is a focus of periosteal calcification at the medial aspect of the mid metatarsal shaft which may be the result of a prior traumatic or stress related injury. There is no marrow edema or surrounding soft tissue edema to suggest active stress reaction.
== END 2024-03-17 15:04 | disposition home or self-care (01) ==
LOC: HO.MRI 15:03
PROVIDERS: PCP Family Medicine; Visit Provider Family Medicine
DX: R93.7 Abnormal findings on diagnostic imaging of other parts of musculoskeletal system (principal)
CPT/HCPCS: 73718

== ENCOUNTER 2024-03-21 09:37 | Outpatient (REF) | payer OTHER, SELFPAY ==
--- NOTE | ~2024-03-21 | FL_ITS ---
EXAMINATION: XR FLUOROSCOPY UPPER GI WITH AIR CLINICAL INFORMATION: Dysphagia COMPARISON: None TECHNIQUE: Fluoroscopic air contrast upper GI examination was performed utilizing standard techniques with thin and thick barium and effervescent granules. Numerous spot images were obtained. FINDINGS: Lateral cine images of the oropharynx and hypopharynx demonstrate normal swallow mechanism with normal epiglottic inversion and soft palate elevation. No tracheal penetration, glottic or subglottic aspiration identified. No nasopharyngeal reflux present. Hypopharyngeal structures appear normal without evidence of mass or diverticulum. Mild cricopharyngeal achalasia is present. Dual and single contrast images of the esophagus demonstrate normal caliber and contour. There is a granular appearance of the esophageal mucosa .There is mild narrowing of the GE junction above the hiatal hernia. Esophageal peristalsis was moderately disorganized. A small type I hiatal hernia is present. Significant gastroesophageal reflux is seen up to the thoracic inlet. Dual contrast and single contrast images of the stomach demonstrated normal contour. The gastric rugal folds have a thickened appearance. There are multiple tiny areas of contrast pooling in the body and fundus of the stomach. No masses are seen. Contrast freely passed into the gastric antrum and duodenal bulb without delay. Single and air-contrast images of the duodenal bulb demonstrate no abnormality. The duodenal sweep has a normal appearance, course, and mucosal fold appearance. The imaged proximal jejunum has a normal fold pattern and caliber. FLUOROSCOPY TIME: 5 minutes 15 sector Number of Spot Images: 15 Number of Cine: 13 DOSE AREA PRODUCT: 2793 uGy-m2 (microgray-meter squared) FL/FL barium swallow with air IMPRESSION: 1. Mild cricopharyngeal achalasia 2. Granular appearance of the esophageal mucosa likely representing esophagitis. 3. Mild narrowing of the GE junction likely due to achalasia, or a benign stricture. Recommend correlation with EGD. 4. Moderately disorganized esophageal peristalsis 5. Small type I hiatal hernia 6. Severe gastroesophageal reflux 7. Thickened appearance of the gastric rugal folds in addition to multiple tiny areas of contrast pooling in the body and body the stomach. These findings are suggestive of erosive gastritis. Recommend correlation with EGD. This procedure was performed by Daniel Jefferson PA-C, and supervised by Dr. Loomis
== END 2024-03-21 09:38 | disposition home or self-care (01) ==
LOC: HO.XRAY 09:37
PROVIDERS: PCP Family Medicine; Visit Provider Internal Medicine
DX: R13.10 Dysphagia, unspecified (principal)
CPT/HCPCS: 74221

== ENCOUNTER → 2024-03-21 09:39 | Outpatient (BNV) | payer OTHER, SELFPAY | PROVIDERS: PCP Family Medicine; Visit Provider Physician Assistant Surgical | DX: R13.10 Dysphagia, unspecified (principal) | CPT/HCPCS: 74246 ==

== ENCOUNTER 2024-05-09 11:24 | Outpatient (REF) | payer OTHER, SELFPAY ==
[2024-05-09 13:31] LABS: Cholesterol 214 mg/dL (<200); HDL Cholesterol 41 mg/dL (>40); LDL Cholesterol Calculated 122 mg/dL (<100); Triglycerides 255 mg/dL (<150)
== END 2024-05-09 11:25 | disposition home or self-care (01) ==
LOC: HO.HHCL 11:24
PROVIDERS: Visit Provider Family Medicine
DX: E78.49 Other hyperlipidemia (principal)
CPT/HCPCS: 36415; 80061

== ENCOUNTER 2024-08-11 08:47 | Day surgery (SDC) | payer OTHER, SELFPAY ==
[2024-08-09 14:04] VITALS: BMI 25.7
[2024-08-11 09:04] VITALS: BP 120/75; PULSE 98; RESP 20; TEMP 37.1; O2SAT 96; BMI 26.0
[2024-08-11 09:06] LABS: Glucose, Whole Blood 141 mg/dL (60-115)
[2024-08-11] MEDS: Lactated Ringers 1,000 ML 100 ML IVCONT (09:15)
--- NOTE | 2024-08-11 09:27 | MHC.SHP ---
Pre-Procedural Eval Section A - 24 Hr Update-Section A only Date of Service: 08/11/24 Section B - Complete if H&P > 30 days Chief Complaint: dysphagia,abnormal weight loss Details of Present Illness: Insomnia Panic disorder Depression with anxiety Hepatitis C virus infection Erectile dysfunction Fatty (change of) liver, not elsewhere classified High cholesterol Diabetes History of brain cancer Hepatitis C Personal history of nicotine dependence Hypothyroid HTN (hypertension) Surgical History (System 09/01/23 @ 11:13 by Rosibel Hernandez) Status post craniectomy (~1992) History of umbilical hernia repair (~07/2014) History of laparoscopic cholecystectomy (~07/2014) Present Medications: see Short Stay Collaborative assessment Allergies: Allergies Allergy/AdvReac Type Severity Reaction Status Date / Time No Known Allergies Allergy Verified 01/19/24 08:56 Review of Systems Review of Systems Comment: 10 point ROS negative Exam Exam Comment: Gen appear: No acute distress HEENT: no icterus Chest: No overt resp distress Abd: soft, nontender, nondistended Psych: Stable affect, answering questions appropriately Neuro: A/Ox3 noted to move all extremities spontaneously Ext: no peripheral edema Plan Diagnosis/Plan: Unchanged I have reviewed the history and physical and performed a pertinent physical examination on my patient. No changes have occurred unless specified. Time Spent With Patient Time: Total time managing care of this patient today ____ minutes.
--- NOTE | 2024-08-11 09:45 | HO.ANESPROP2 ---
Documented by User: Katy Dominguez NP 08/10/24 08:42 HPI - Anesthesia Eval Consult details Narrative: 69yo M for Upper Endoscopy and Colonoscopy [facility] Active Problems Active Problems: All Active Problems Unintentional weight loss (Acute) Dysphagia (Acute) Screening for AAA (abdominal aortic aneurysm) (Acute) Mass of right side of neck (Acute) Hepatitis C virus infection (Acute) Personal history of nicotine dependence (Acute) Past Medical History Medical History (Updated 08/09/24 @ 14:00 by Beena Dahl RN) Insomnia Panic disorder Depression with anxiety Erectile dysfunction Fatty (change of) liver, not elsewhere classified High cholesterol Diabetes History of brain cancer Hepatitis C Personal history of nicotine dependence Hypothyroid HTN (hypertension) Surgical History Surgical History (System 09/01/23 @ 11:13 by Rosibel Hernandez) Status post craniectomy (~1992) History of umbilical hernia repair (~07/2014) History of laparoscopic cholecystectomy (~07/2014) Social History Social History (System 09/01/23 @ 11:13 by Rosibel Hernandez) Patient Tobacco Use Status: Former Tobacco user Have you been hit, kicked, punched, or otherwise hurt by someone within the past year? If so, by whom?: No Are you DNR?: No Advance Directives: No Advance Directives Information Provided: Yes Meds Allergies Allergy/AdvReac Type Severity Reaction Status Date / Time No Known Allergies Allergy Verified 01/19/24 08:56 Home Medications ?Medication ?Instructions ?Recorded ?Confirmed ?Last Taken ?Type aspirin 81 mg tablet,delayed 81 mg PO DAILY 01/19/24 08/07/24 History release atorvastatin 80 mg tablet 80 mg PO DAILY 01/19/24 08/09/24 Unknown History baclofen 10 mg tablet 10 mg PO TID 01/19/24 08/09/24 Unknown History cholecalciferol (vitamin D3) 50 50 mcg PO DAILY 01/19/24 08/09/24 Unknown History mcg (2,000 unit) capsule (Vitamin D3) clonazepam 2 mg tablet 2 mg PO DAILY PRN Anxiety 01/19/24 08/09/24 Unknown History metformin 500 mg tablet 500 mg PO BID 01/19/24 08/09/24 Unknown History omega-3 300 mg-dha 120 mg-epa 180 1 cap PO DAILY 01/19/24 08/09/24 08/07/24 History mg-fish oil 1,000 mg capsule omeprazole 20 mg capsule,delayed 20 mg PO BID 01/19/24 08/09/24 Unknown History release quetiapine 100 mg tablet 100 mg PO BEDTIME 01/19/24 08/09/24 Unknown History tamsulosin 0.4 mg capsule 0.4 mg PO DAILY 01/19/24 08/09/24 Unknown History tramadol 50 mg tablet 50 mg PO TID PRN Pain 01/19/24 08/09/24 Unknown History Exam Height,Weight and Vital Signs: Height 5 ft 6 in Weight 72.121 kg Narrative Narrative: ECHO 10/2023 Conclusions: - The left ventricular systolic function is hyperdynamic. The calculated ejection fraction is 69% by biplane method. - No obvious valvular pathology seen on this study. Assessment and Plan Assessment Anesthesia Assessment: Chart Reviewed Documented by User: Carie Alvarez DO 08/11/24 09:50 [facility] Past Medical History Medical History (Updated 08/09/24 @ 14:00 by Beena Dahl RN) Insomnia Panic disorder Depression with anxiety Erectile dysfunction Fatty (change of) liver, not elsewhere classified High cholesterol Diabetes History of brain cancer Hepatitis C Personal history of nicotine dependence Hypothyroid HTN (hypertension) Family History Family history of problems with anesthesia: No Surgical History Surgical History (System 09/01/23 @ 11:13 by Rosibel Hernandez) Status post craniectomy (~1992) History of umbilical hernia repair (~07/2014) History of laparoscopic cholecystectomy (~07/2014) History of Problems with Anesthesia: No Social History Social History (System 09/01/23 @ 11:13 by Rosibel Hernandez) Patient Tobacco Use Status: Former Tobacco user Have you been hit, kicked, punched, or otherwise hurt by someone within the past year? If so, by whom?: No Are you DNR?: No Advance Directives: No Advance Directives Information Provided: Yes Meds Allergies Allergy/AdvReac Type Severity Reaction Status Date / Time No Known Allergies Allergy Verified 01/19/24 08:56 Home Medications ?Medication ?Instructions ?Recorded ?Confirmed ?Last Taken ?Type aspirin 81 mg tablet,delayed 81 mg PO DAILY 01/19/24 08/07/24 History release atorvastatin 80 mg tablet 80 mg PO DAILY 01/19/24 08/09/24 Unknown History baclofen 10 mg tablet 10 mg PO TID 01/19/24 08/09/24 Unknown History cholecalciferol (vitamin D3) 50 50 mcg PO DAILY 01/19/24 08/09/24 Unknown History mcg (2,000 unit) capsule (Vitamin D3) clonazepam 2 mg tablet 2 mg PO DAILY PRN Anxiety 01/19/24 08/09/24 Unknown History metformin 500 mg tablet 500 mg PO BID 01/19/24 08/09/24 Unknown History omega-3 300 mg-dha 120 mg-epa 180 1 cap PO DAILY 01/19/24 08/09/24 08/07/24 History mg-fish oil 1,000 mg capsule omeprazole 20 mg capsule,delayed 20 mg PO BID 01/19/24 08/09/24 Unknown History release quetiapine 100 mg tablet 100 mg PO BEDTIME 01/19/24 08/09/24 Unknown History tamsulosin 0.4 mg capsule 0.4 mg PO DAILY 01/19/24 08/09/24 Unknown History tramadol 50 mg tablet 50 mg PO TID PRN Pain 01/19/24 08/09/24 Unknown History Exam Exam Date and Time: 08/11/2445 Height,Weight and Vital Signs: Height 5 ft 6 in Weight 72.121 kg Vital Signs Temperature 98.7 F 08/11/24 09:04 Pulse Rate 98 08/11/24 09:04 Respiratory Rate 20 08/11/24 09:04 Blood Pressure 120/75 08/11/24 09:04 Pulse Oximetry 96 08/11/24 09:04 Oxygen Delivery Method Room Air 08/11/24 09:04 Temperature 98.7 F 08/11/24 09:04 Pulse Rate 98 08/11/24 09:04 Respiratory Rate 20 08/11/24 09:04 Blood Pressure 120/75 08/11/24 09:04 Pulse Oximetry 96 08/11/24 09:04 Oxygen Delivery Method Room Air 08/11/24 09:04 Airway Mallampati Class: IV (large tongue) TM Dist: >3cm Neck ROM: Full Denture: Upper Heart: S1S2 Lungs: CTAB Assessment and Plan Assessment Anesthesia Assessment: Anesthesia Plan Discussed and Chart Reviewed Final Anesthetic Review Family History of Problems with Anesthesia: No History of Problems with Anesthesia: No NPO: Yes ASA Class: II Final Preanesthetic Review: No Changes in Pt Med Stat, Meds/Allgs Chart Reviewed, Consent Obtained/Reviewed and Anes Risks/Benef Reviewed Patient Risk: Low Procedure Risk: Low Anesthetic Plan Anesthetic Plan: MAC: and Agree w/ Assess. and Plan Disposition: Standard PACU
[2024-08-11 11:10] VITALS: BP 75/52; PULSE 103; RESP 16; TEMP 36.1; O2SAT 94
[2024-08-11 11:15] VITALS: BP 110/67; PULSE 98; RESP 16; O2SAT 100
[2024-08-11 11:25] VITALS: BP 118/75; PULSE 94; RESP 16; O2SAT 97
[2024-08-11 11:40] VITALS: BP 131/90; PULSE 87; RESP 16; TEMP 36.2; O2SAT 97
--- NOTE | 2024-08-11 12:02 | P.OPN-COLO_ITS ---
Colonoscopy Operative Note Operative Note Date of Service: 08/11/24 Narrative: Procedure: Upper endoscopy and colonoscopy Indication: Dysphagia, unintentional weight loss Endoscopist: Svetlana Solis MD Anesthesia Provider: Elissa Ennis CRNA Anesthesia type: MAC Instrument: [id number] and [id number] EGD Procedure:?? The procedure, indications, preparation and potential complications were reviewed with the patient with the help of a field pipelines supervisor who indicated understanding and gave written informed consent to proceed. The endoscope was introduced through the mouth, and advanced to the 2nd part of the duodenum. The mucosa was carefully examined on slow withdrawal of the endoscope. The patient tolerated the procedure well. There were no immediate complications.? EGD Findings:? * Esophagus:? The Z-line was at 35 cm and irregular up to 32 cm. Cold forceps biopsies were taken to rule out oliver's esophagus. There was also a small 1 cm nodule at the GE junction at 35 cm. Cold forceps excisional biopsies were taken. A Tissue Cypher will also be sent. Right above the GE junction was a Schatzki's ring. Scope could easily traverse through this. A [id number] balloon was advanced to the GE junction and the Schatzki's ring was interrupted by gradually dilated from 15-18 mm. * Stomach:? Erythema and erosions in the stomach body and cardia. Retroflexion was performed in the cardia that showed Hill grade II hiatal hernia. Random cold forceps biopsies were taken from the stomach. * Duodenum:? Erythema and edema in the second portion of the duodenum. Cold forceps biopsies were taken from the duodenal bulb and 2nd portion of the duodenum for histology. Colonoscopy Procedure:? The patient was then turned for the colonoscopy. A digital rectal exam was performed which was normal.? A distal attachment cap was affixed to the tip of the scope and the colonoscope was then inserted through the anus and advanced through the colon and advanced to the cecum at 80 cm and terminal ileum.? Appendiceal orifice and ileocecal valve were identified. Mucosa was carefully examined under high definition white light as the instrument was slowly withdrawn in a retrograde panoramic fashion. Retroflexion was performed in re ctum. The procedure was not difficult. The quality of the prep was BBPS: 2+1+1 = inadequate Withdrawal time 15 minutes Limitations: No limitations Findings: Mucosa: Opaque liquid stool throughout most of the colon, the underlying mucosa was normal to the extent examined. Protruding lesions: * 1 sessile polyp of size 2 mm in ascending colon. Cold snare polypectomy was performed and the polyp was completely removed and retrieved. * 2 sessile polyps of size 2-7 mm in descending colon. Cold snare polypectomy was performed and the polyps were completely removed and retrieved. * Small internal hemorrhoids without stigmata of recent bleeding. Impression: 1. Possible oliver's esophagus (biopsy, tissue cypher) 2. Esophageal nodule (biopsy) 3. Schatzki's ring (dilation) 4. Hiatal hernia 5. Gastritis (biopsy) 6. Duodenitis (biopsy) 7. Poor prep (biopsy) 8. 3 polyps removed 9. Internal and external hemorrhoids Recommendations:?? * Follow-up path and Tissue Cypher results * Repeat EGD contingent on histology and presence of dysplasia * Cont omeprazole BID * Avoid NSAIDs * Repeat colonoscopy in 1 year due to prep
== END 2024-08-11 12:17 | disposition home or self-care (01) ==
PROVIDERS: PCP Family Medicine; Visit Provider Internal Medicine
PROC: (CPT 45385; principal; 2024-08-11 10:00)
DX: R63.4 Abnormal weight loss (principal); Z68.25 Body mass index [BMI] 25.0-25.9, adult; D12.2 Benign neoplasm of ascending colon; D12.4 Benign neoplasm of descending colon; K57.30 Diverticulosis of large intestine without perforation or abscess without bleeding; K64.8 Other hemorrhoids; K64.4 Residual hemorrhoidal skin tags; R13.10 Dysphagia, unspecified; K29.80 Duodenitis without bleeding; K22.2 Esophageal obstruction; K22.70 Barrett's esophagus without dysplasia; K29.70 Gastritis, unspecified, without bleeding; K22.82 Esophagogastric junction polyp; K44.9 Diaphragmatic hernia without obstruction or gangrene; K76.0 Fatty (change of) liver, not elsewhere classified; I10 Essential (primary) hypertension; E11.9 Type 2 diabetes mellitus without complications; E03.9 Hypothyroidism, unspecified; F41.8 Other specified anxiety disorders; E78.00 Pure hypercholesterolemia, unspecified; Z85.841 Personal history of malignant neoplasm of brain; Z87.891 Personal history of nicotine dependence; Z79.82 Long term (current) use of aspirin; Z79.899 Other long term (current) drug therapy; Z79.84 Long term (current) use of oral hypoglycemic drugs; Z98.890 Other specified postprocedural states
CPT/HCPCS: 45385; 43249; 43239; 82947; 88305; 88313; 88342; C1726; J1100; J1596; J2003; J2371; J2704

== ENCOUNTER → 2024-08-11 08:47 | Outpatient (BNV) | payer OTHER, SELFPAY | PROVIDERS: PCP Family Medicine; Visit Provider Internal Medicine | DX: R13.10 Dysphagia, unspecified (principal); K22.70 Barrett's esophagus without dysplasia; K22.82 Esophagogastric junction polyp; K22.2 Esophageal obstruction; D12.2 Benign neoplasm of ascending colon; D12.4 Benign neoplasm of descending colon; K64.8 Other hemorrhoids; R63.4 Abnormal weight loss | CPT/HCPCS: 43239; 45385 ==

== ENCOUNTER 2024-09-15 17:29 | Outpatient (REF) | payer OTHER, SELFPAY ==
[2024-09-19 11:52] LABS: Alphahydroxymidazolam,GCMS Ur NEGATIVE; Alphahydroxytriazolam, GCMS Ur NEGATIVE; Alprazolam, GCMS Urine NEGATIVE; Flurazepam Metabolite,GCMS Ur NEGATIVE; Lorazepam GCMS Urine NEGATIVE; Nordiazepam, GCMS Urine NEGATIVE; Oxazepam, GCMS Urine NEGATIVE; Temazepam, GCMS Urine NEGATIVE
[2024-09-19 11:53] LABS: Aminoclonazepam, GCMS Urine 1146 (H)
== END 2024-09-15 17:30 | disposition home or self-care (01) ==
LOC: HO.HHCLNP 17:29
PROVIDERS: Visit Provider Family Medicine
DX: F39 Unspecified mood [affective] disorder (principal)
CPT/HCPCS: 80346

== ENCOUNTER 2024-12-21 09:55 | Outpatient (REF) | payer OTHER, SELFPAY ==
[2024-12-21 11:14] LABS: MANUAL DIFF FLAG NO
[2024-12-21 11:19] LABS: Appearance Urine Clear; Basophils Percent Auto 0.6 % (0-2); Color Urine Yellow; Eosinophils Absolute Auto 0.1 X10*3/uL (0.0-0.4); Eosinophils Percent Auto 1.6 % (0-4); Glucose Urine UA 100 mg/dL (Negative); Hematocrit 42.5 % (42.0-52.0); Hemoglobin 13.7 g/dl (14.0-18.0); Imm Gran Abs Auto 0.02 X10*3/uL (0.00-0.03); Imm Gran Pct Auto 0.3 % (0.0-0.4); Leukocyte Esterase Urine Negative (Negative); Lymphocytes Absolute Auto 1.9 X10*3/uL (1.2-4.9); Lymphocytes Percent Auto 29.5 % (20-40); Mean Corpuscular HGB Conc 32.2 g/dl (31.0-36.0); Mean Corpuscular Hemoglobin 30.4 pg (27.0-33.0); Mean Corpuscular Volume 94.4 fL (80.0-98.0); Monocytes Absolute Auto 0.4 X10*3/uL (0.1-1.2); Monocytes Percent Auto 6.9 % (2-11); Neutrophils Absolute Auto 3.9 x10*3/uL (2.0-8.3); Neutrophils Percent Auto 61.1 % (45-73); Nitrite Urine Negative (Negative); PH 6.5 (5.0-9.0); Platelet Count 205 X10*3/uL (160-400); Red Cell Distribution Width 13.5 % (11.0-16.0); Urine Blood Negative (Negative); Urine Ketones Trace mg/dL (Negative); Urine Protein Negative (Neg-Trace); White Blood Count 6.4 X10*3/uL (4.8-10.8)
[2024-12-21 11:25] LABS: Bacteria Urine None Seen (None Seen); Hyaline Casts Urine 0-2 /LPF (0-2); RBC Urine 0-2 /HPF (0-2); Squamous Epithelial Cell Urine 0-2 /HPF (0-2); WBC Urine 0-5 /HPF (0-5)
[2024-12-21 11:34] LABS: Estimated Average Glucose 169 mg/dL; Hemoglobin A1c % 7.5 % (<6.0)
[2024-12-21 11:52] LABS: Creatinine Urine 190.87 mg/dL; Microalbum/Creatinine Ratio Ur 4.7 ug/mg cr (<30)
[2024-12-21 11:54] LABS: Erythrocyte Sedimentation Rate 7 MM/HR (0-15)
[2024-12-21 11:55] LABS: HIV AB/AG Nonreactive (Nonreactive); HIV Num 1 0.06 S/CO (0.00-0.99); ~HepC Num1 9.03 S/CO (0.00-0.79); ~Hepatitis C Antibody Reactive (Nonreactive)
[2024-12-21 12:07] LABS: Alanine Aminotransferase 19 U/L (0-40); Alkaline Phosphatase 61 U/L (39-117); Anion Gap 11 (12-20); Aspartate Amino Transferase 16 U/L (5-37); Bilirubin Direct 0.1 mg/dL (0.0-0.5); Bilirubin Total 0.3 mg/dL (0.0-1.0); Blood Urea Nitrogen 19 mg/dL (9-16); C Reactive Protein 0.14 mg/dL (< or = 0.50); Calcium 9.1 mg/dL (8.4-10.2); Carbon Dioxide 29 mmol/L (22-29); Chloride 103 mmol/L (96-108); Cholesterol 247 mg/dL (<200); Estimated Glomerular Filt Rate > 60; Free T4 (Free Thyroxine) 0.86 ng/dL (0.71-1.85); Glucose Random 309 mg/dL (60-115); HDL Cholesterol 40 mg/dL (>40); LDL Cholesterol Calculated 130 mg/dL (<100); Potassium 4.2 mmol/L (3.3-5.1); Sodium 139 mmol/L (135-145); Total Protein 7.1 g/dL (6.5-8.0); Triglycerides 385 mg/dL (<150); Vitamin D 25-OH Total 33.5 ng/mL (>30)
[2024-12-21 12:13] LABS: Prostate Specific Antigen 1.02 ng/mL (<0.05-4.0)
[2024-12-22 11:24] LABS: Alpha Fetoprotein 4.5 ng/mL (<6.1)
[2024-12-23 15:13] LABS: HCV Log PCR <1.18 NOT DETECTED Log IU/mL (NOT DETECTED); HepC Viral Load <15 NOT DETECTED IU/mL (NOT DETECTED)
[2024-12-24 09:48] LABS: TS Negative Control Passed; TS Panel A 1; TS Panel B 1; TS Positive Control Passed; TSpotTB Negative (Negative)
== END 2024-12-21 09:56 | disposition home or self-care (01) ==
LOC: HO.HHCL 09:55
PROVIDERS: Visit Provider Family Medicine
DX: E11.9 Type 2 diabetes mellitus without complications (principal); E78.49 Other hyperlipidemia; K76.0 Fatty (change of) liver, not elsewhere classified; F39 Unspecified mood [affective] disorder; Z85.828 Personal history of other malignant neoplasm of skin; F17.200 Nicotine dependence, unspecified, uncomplicated; R13.10 Dysphagia, unspecified; N28.1 Cyst of kidney, acquired; R41.3 Other amnesia; R42 Dizziness and giddiness; K52.9 Noninfective gastroenteritis and colitis, unspecified; M79.671 Pain in right foot; M79.672 Pain in left foot; R93.1 Abnormal findings on diagnostic imaging of heart and coronary circulation; R63.4 Abnormal weight loss; H60.502 Unspecified acute noninfective otitis externa, left ear; Z00.00 Encounter for general adult medical examination without abnormal findings
CPT/HCPCS: 36415; 80048; 80061; 80076; 81001; 82043; 82105; 82306; 82570; 83036; 84134; 84153; 84439; 84443; 85025; 85027; 85652; 86140; 86481; 86803; 87389; 87522